=== PATIENT | male | born 1975 | race Caucasian/White ===

== ENCOUNTER 2016-08-13 09:10 | Emergency (ER) | payer OTHER ==
[2016-08-13 09:27] VITALS: BP 124/61
--- NOTE | 2016-08-13 09:34 | UC ---
Respiratory Complaint HPI - HPI Summary HPI Summary: The patient comes in today for: 1. Sinus pressure, cough in AM: Onset: 2-3 weeks for the sinus pressure; cough present for 6 weeks. Palliative/provocative: Nothing makes his symptoms better or worse. Quality: Pressure. Region: Sinuses and "ear pressure." Severity: 06/13 Time: Constant. Associated symptoms: Fevers: None. Chest pain: None. Dyspnea: None. * - History of Current Complaint Chief Complaint: UCRespiratory Stated Complaint: SINUS Time Seen by Provider: 08/13/16 09:26 Hx Obtained From: Patient - Allergies/Home Medications Allergies/Adverse Reactions: Allergies Allergy/AdvReac Type Severity Reaction Status Date / Time No Known Allergies Allergy Verified 08/13/16 09:17 PMH/Surg Hx/FS Hx/Imm Hx Previously Healthy: No - Herniated disc, mid-lower back. Endocrine History Of: Denies: Diabetes, Thyroid Disease, Hyperthyroidism, Hypothyroidism, Dyslipidemia Cardiovascular History Of: Reports: Hypertension Denies: Cardiac Disorders, Pacemaker/ICD, Myocardial Infarction, Congestive Heart Failure, Atrial Fibrillation, Deep Vein Thrombosis, Bleeding Disorders Respiratory History Of: Reports: Asthma - He used an inhaler in the past when "really sick" but not on a regular basi Denies: COPD, Bronchitis, Pneumonia, Pulmonary Embolism GI/ History Of: Denies: Gastroesophageal Reflux, Ulcer, Gastrointestinal Bleed, Gall Bladder Disease, Kidney Stones, Diverticulitis, Renal Disease, Urosepsis Neurological History Of: Denies: TIA, CVA, Dementia, Seizures, Migraine Psychological History Of: Denies: Anxiety, Depression, Bipolar Disorder, Schizophrenia, Post Traumatic Stress Disorder Cancer History Of: Denies: Lung Cancer, Colorectal Cancer, Breast Cancer, Prostate Cancer, Cervical Cancer Other History Of: Negative For: HIV, Hepatitis B, Hepatitis C, Anticoagulant Therapy - Surgical History Surgical History: Yes Surgery Procedure, Year, and Place: left hand surgery - Family History Known Family History: Positive: Hypertension - mother and father, Diabetes - father - Social History Occupation: Employed Full-time Alcohol Use: Occasionally Alcohol Amount: once a week Substance Use Type: None Smoking Status (MU): Never Smoked Tobacco - Immunization History Most Recent Influenza Vaccination: no Review of Systems Constitutional: Negative Skin: Negative Eyes: Negative ENT: Nasal Discharge Respiratory: Cough Cardiovascular: Negative Gastrointestinal: Negative All Other Systems Reviewed And Are Negative: Yes Physical Exam Triage Information Reviewed: Yes Appearance: Well-Appearing, No Pain Distress, Well-Nourished Vital Signs: Initial Vital Signs Temp 98.2 F 08/13/16 09:18 Pulse 94 08/13/16 09:18 Resp 20 08/13/16 09:18 BP 124/61 08/13/16 09:18 Pulse Ox 98 08/13/16 09:18 Vital Signs Reviewed: Yes Eyes: Positive: Conjunctiva Clear. Negative: Discharge ENT: Positive: Hearing grossly normal. Negative: Pharyngeal erythema, Nasal congestion, Nasal drainage, TM bulging, TM dull, TM red, Tonsillar swelling, Tonsillar exudate Dental: Negative: Gross Decay/Caries @, Dental Fracture @ Neck: Positive: Supple, Nontender, No Lymphadenopathy. Negative: Nuchal Rigidity Respiratory: Positive: Chest non-tender, Lungs clear, No respiratory distress, No accessory muscle use. Negative: Crackles, Wheezing Cardiovascular: Positive: RRR, No Murmur Abdomen Description: Positive: Nontender, No Organomegaly, Soft. Negative: Distended, Guarding Musculoskeletal: Positive: Strength Intact, ROM Intact, No Edema Neurological: Positive: Alert, Muscle Tone Normal Psychological: Positive: Age Appropriate Behavior, Consolable Skin: Negative: rashes, breakdown UC Diagnostic Evaluation - Laboratory O2 Sat by Pulse Oximetry: 98 Respiratory Course/Dx - Differential Dx/Diagnosis Differential Diagnosis/HQI/PQRI: Bronchitis, Laryngitis, Sinusitis Provider Diagnoses: Bacterial sinusitis Discharge - Discharge Plan Condition: Stable Disposition: HOME Forms: *Work Release Referrals: Enrico Palomo MD [Primary Care Provider] -
== END 2016-08-13 09:58 | disposition home or self-care (01) ==
LOC: UCCORT 09:10
DX: J32.9 Chronic sinusitis, unspecified (principal)
CPT/HCPCS: 99212; G0463

== ENCOUNTER 2016-10-20 14:29 | Emergency (ER) | payer OTHER ==
[2016-10-20 17:08] VITALS: BP 124/83
--- NOTE | 2016-10-20 17:32 | UC ---
Throat Pain/Nasal [place] HPI - HPI Summary HPI Summary: nasal congestion, cough, bilat ears plugged, left worse than right, no fever x 3 days. Had night sweats last pm. Does not have allergies. OTC counter meds don't work, and has HTN so can't take many of them. States he doesn't get better until he gets an antibiotic. - History of Current Complaint Chief Complaint: UCRespiratory Stated Complaint: SINUS,EAR PAIN Time Seen by Provider: 10/20/16 17:23 Hx Obtained From: Patient Onset/Duration: Gradual Onset, Lasting Days - 3, Still Present Severity: Moderate Pain Intensity: 0 Pain Scale Used: 0-10 Numeric Cough: Sputum Appears - yellow Associated Signs & Symptoms: Positive: Hoarseness, Sinus Discomfort, Nasal Discharge, Other - sweats. Negative: Wheezing, Fever - Allergies/Home Medications Allergies/Adverse Reactions: Allergies Allergy/AdvReac Type Severity Reaction Status Date / Time No Known Allergies Allergy Verified 10/20/16 16:12 PMH/Surg Hx/FS Hx/Imm Hx Endocrine History Of: Denies: Diabetes, Thyroid Disease, Hyperthyroidism, Hypothyroidism, Dyslipidemia Cardiovascular History Of: Reports: Hypertension Denies: Cardiac Disorders, Pacemaker/ICD, Myocardial Infarction, Congestive Heart Failure, Atrial Fibrillation, Deep Vein Thrombosis, Bleeding Disorders Respiratory History Of: Reports: Asthma - He used an inhaler in the past when "really sick" but not on a regular basi Denies: COPD, Bronchitis, Pneumonia, Pulmonary Embolism GI/ History Of: Denies: Gastroesophageal Reflux, Ulcer, Gastrointestinal Bleed, Gall Bladder Disease, Kidney Stones, Diverticulitis, Renal Disease, Urosepsis Neurological History Of: Denies: TIA, CVA, Dementia, Seizures, Migraine Psychological History Of: Denies: Anxiety, Depression, Bipolar Disorder, Schizophrenia, Post Traumatic Stress Disorder Cancer History Of: Denies: Lung Cancer, Colorectal Cancer, Breast Cancer, Prostate Cancer, Cervical Cancer Other History Of: Negative For: HIV, Hepatitis B, Hepatitis C, Anticoagulant Therapy - Surgical History Surgical History: Yes Surgery Procedure, Year, and Place: left hand surgery - Family History Known Family History: Positive: Hypertension - mother and father, Diabetes - father - Social History Occupation: Employed Full-time - [employer] Lives: Alone Alcohol Use: Occasionally Alcohol Amount: once a week Substance Use Type: None Smoking Status (MU): Never Smoked Tobacco - Immunization History Most Recent Influenza Vaccination: no Review of Systems Constitutional: Other - sweats Skin: Negative Eyes: Negative ENT: Sore Throat, Ear Ache, Nasal Discharge Respiratory: Cough Cardiovascular: Negative Gastrointestinal: Negative Genitourinary: Negative Motor: Negative Neurovascular: Negative Musculoskeletal: Negative Neurological: Negative Psychological: Negative All Other Systems Reviewed And Are Negative: Yes Physical Exam Triage Information Reviewed: Yes Appearance: No Pain Distress, Well-Nourished, Ill-Appearing Vital Signs: Initial Vital Signs Temp 99.8 F 10/20/16 16:07 Pulse 99 10/20/16 16:07 Resp 18 10/20/16 16:07 BP 129/53 10/20/16 16:07 Pulse Ox 96 10/20/16 16:07 Vital Signs Reviewed: Yes Eyes: Positive: Conjunctiva Clear ENT: Positive: Hearing grossly normal, Pharyngeal erythema, Nasal congestion, TMs normal Neck: Positive: Supple, Nontender, No Lymphadenopathy Respiratory: Positive: Lungs clear, Normal breath sounds, No respiratory distress Cardiovascular: Positive: RRR, No Murmur, Pulses Normal, Brisk Capillary Refill Musculoskeletal: Positive: Strength Intact, ROM Intact Neurological: Positive: Alert, Muscle Tone Normal Psychological Exam: Normal Skin Exam: Normal Throat Pain/Nasal Course/Dx - Differential Dx/Diagnosis Differential Diagnosis/HQI/PQRI: Otitis Media, Pharyngitis, Sinusitis, URI Provider Diagnoses: sinusitis. BP in poor control Discharge - Discharge Plan Condition: Stable Disposition: HOME Prescriptions: Azithromycin TAB* [Zithromax TAB (Z-AKBAR) 250 mg #6 tabs] 2 tab PO .TODAY, THEN 1 DAILY #1 akbar guaiFENesin/CODIEN 100MG-10MG* [Robitussin AC 100Mg-10Mg*] 5 ml PO Q4H PRN #100 ml MDD 20ml PRN Reason: Cough Patient Education Materials: Sinusitis (ED) Referrals: Enrico Palomo MD [Primary Care Provider] - 5 Days
== END 2016-10-20 17:47 | disposition swing bed (61) ==
LOC: UCCORT 14:29
DX: J32.9 Chronic sinusitis, unspecified (principal); I10 Essential (primary) hypertension; J45.909 Unspecified asthma, uncomplicated
CPT/HCPCS: 99212; G0463

== ENCOUNTER 2017-03-18 10:11 | Emergency (ER) | payer OTHER ==
[2017-03-18 12:02] VITALS: BP 121/55
--- NOTE | 2017-03-18 12:09 | UC ---
Respiratory Complaint HPI - HPI Summary HPI Summary: Pt presents c/o cough, nasal congestion, sinus pressure X 3 weeks. Woodrow fever or chills. - History of Current Complaint Chief Complaint: UCRespiratory Stated Complaint: COUGH Time Seen by Provider: 03/18/17 11:53 Hx Obtained From: Patient Onset/Duration: Gradual Onset, Lasting Weeks - 3, Still Present, Worse Since - onset Timing: Intermittent Episodes Severity Initially: Mild Severity Currently: Moderate Character: Cough: Productive - yellow Aggravating Factors: Exertion, Deep Breaths, Recumbent Position Associated Signs And Symptoms: Positive: URI, Nasal Congestion, Sinus Discomfort - Risk Factors Pulmonary Embolism Risk Factors: Negative Cardiac Risk Factors: Negative Pseudomonas Risk Factors: Negative Tuberculosis Risk Factors: Negative - Allergies/Home Medications Allergies/Adverse Reactions: Allergies Allergy/AdvReac Type Severity Reaction Status Date / Time No Known Allergies Allergy Verified 03/18/17 11:51 Home Medications: Home Medications Pravastatin Sodium [Pravachol] 40 mg PO BEDTIME 03/18/17 [History Confirmed ] PMH/Surg Hx/FS Hx/Imm Hx Previously Healthy: Yes Other History Of: Negative For: HIV, Hepatitis B, Hepatitis C, Anticoagulant Therapy - Surgical History Surgical History: Yes Surgery Procedure, Year, and Place: left hand surgery - Family History Known Family History: Positive: Hypertension - mother and father, Diabetes - father - Social History Occupation: Employed Full-time Lives: With Family Alcohol Use: Occasionally Alcohol Amount: once a week Substance Use Type: None Smoking Status (MU): Never Smoked Tobacco Have You Smoked in the Last Year: No - Immunization History Most Recent Influenza Vaccination: no Review of Systems Constitutional: Negative Skin: Negative Eyes: Negative ENT: Sinus Congestion, Other - nasal congestion Respiratory: Cough Cardiovascular: Negative Gastrointestinal: Negative Genitourinary: Negative Motor: Negative Neurovascular: Negative Musculoskeletal: Negative Neurological: Negative Psychological: Negative Is Patient Immunocompromised?: No All Other Systems Reviewed And Are Negative: Yes Physical Exam Triage Information Reviewed: Yes Appearance: Well-Appearing Vital Signs: Initial Vital Signs Temp 97.2 F 03/18/17 11:48 Pulse 98 03/18/17 11:48 Resp 14 03/18/17 11:48 BP 121/55 03/18/17 11:48 Pulse Ox 98 03/18/17 11:48 Vital Signs Reviewed: Yes Eye Exam: Normal ENT Exam: Other ENT: Positive: Nasal congestion, TM bulging Dental Exam: Normal Neck exam: Normal Respiratory Exam: Normal Cardiovascular Exam: Normal Musculoskeletal Exam: Normal Neurological Exam: Normal Psychological Exam: Normal Skin Exam: Normal UC Diagnostic Evaluation - Laboratory O2 Sat by Pulse Oximetry: 98 Respiratory Course/Dx - Differential Dx/Diagnosis Differential Diagnosis/HQI/PQRI: Bronchitis, Other - URI Provider Diagnoses: allergies. cough. bronchitis Discharge - Discharge Plan Condition: Stable Disposition: HOME Prescriptions: Amoxicillin PO (*) [Amoxicillin 500 MG CAP*] 500 mg PO Q12H #14 cap Benzonatate CAP* [Tessalon 100 MG CAP*] 100 mg PO Q8H PRN #30 cap PRN Reason: Cough Fexofenadine-Pseudoephedrine [Malu-D 24 Hour Allergy] 1 tab PO DAILY #10 tab predniSONE TAB* [Deltasone TAB*] 30 mg PO DAILY #12 tab Patient Education Materials: Acute Cough (ED) Forms: *Work Release Referrals: Enrico Palomo MD [Primary Care Provider] - If Needed
== END 2017-03-18 12:17 | disposition home or self-care (01) ==
LOC: UCCORT 10:11
DX: J40 Bronchitis, not specified as acute or chronic (principal)
CPT/HCPCS: 99212; G0463

== ENCOUNTER 2018-12-29 11:51 | Emergency (ER) | payer OTHER ==
[2018-12-29 12:39] VITALS: BP 143/93
--- NOTE | 2018-12-29 12:55 | UC ---
Back Pain HPI - HPI Summary HPI Summary: Pt has 4 herniated discs, which he has been managing with Naproxen intermittently when he has "flare up pain", which he says works well. Starting yesterday pain returned, pt has been doing some strenuous activity and believes that has exacerbated this issue - History of Current Complaint Chief Complaint: UCBackPain Stated Complaint: BACK PAIN Time Seen by Provider: 12/29/18 12:36 Hx Obtained From: Patient Onset/Duration: Sudden Onset, Lasting Days - 2 Timing: Constant Severity Initially: Moderate Severity Currently: Moderate Pain Intensity: 6 Character: Aching, Spasmodic Aggravating Factor(s): Movement Alleviating Factor(s): Nothing - Allergies/Home Medications Allergies/Adverse Reactions: Allergies Allergy/AdvReac Type Severity Reaction Status Date / Time No Known Allergies Allergy Verified 12/29/18 12:39 PMH/Surg Hx/FS Hx/Imm Hx Previously Healthy: Yes Other History Of: Negative For: HIV, Hepatitis B, Hepatitis C, Anticoagulant Therapy - Surgical History Surgical History: Yes Surgery Procedure, Year, and Place: left hand surgery - Family History Known Family History: Positive: Hypertension - mother and father, Diabetes - father - Social History Alcohol Use: Weekly Alcohol Amount: once a week Substance Use Type: None Smoking Status (MU): Never Smoked Tobacco Have You Smoked in the Last Year: No - Immunization History Most Recent Influenza Vaccination: no Review of Systems All Other Systems Reviewed And Are Negative: Yes Musculoskeletal: Positive: Arthralgia, Myalgia Is Patient Immunocompromised?: No Physical Exam Triage Information Reviewed: Yes Appearance: Well-Appearing, Well-Nourished, Pain Distress Vital Signs: Initial Vital Signs Temp 98.9 F 12/29/18 12:33 Pulse 95 12/29/18 12:33 Resp 16 12/29/18 12:33 BP 143/93 12/29/18 12:33 Pulse Ox 100 12/29/18 12:33 Vital Signs Reviewed: Yes Eye Exam: Normal ENT Exam: Normal Dental Exam: Normal Neck exam: Normal Respiratory Exam: Normal Cardiovascular Exam: Normal Abdominal Exam: Normal Bowel Sounds: Positive: Present Musculoskeletal: Positive: Strength Intact, ROM Intact, No Edema Neurological Exam: Normal Psychological Exam: Normal Skin Exam: Normal Back Pain Course/Dx - Course Course Of Treatment: hx obtained, exam performed ,meds reviewed, treated for chronic back pain - Differential Dx/Diagnosis Differential Diagnosis/HQI/PQRI: Herniated Disc, Strain, Sprain Provider Diagnosis: Herniated intervertebral disc of lumbar spine, Back strain Discharge - Sign-Out/Discharge Documenting (check all that apply): Patient Departure All imaging exams completed and their final reports reviewed: No Studies - Discharge Plan Condition: Stable Disposition: HOME Prescriptions: Cyclobenzaprine TAB* [Flexeril 10 MG TAB*] 10 mg PO TID PRN #6 tab PRN Reason: Spasms Naproxen [Naproxen 500 mg tab] 500 mg PO BID #60 tablet. Patient Education Materials: Chronic Back Pain (DC) Forms: *Work Release Referrals: Sury Anderson PA [Primary Care Provider] - Additional Instructions: 1. take the medication as prescribed. 2. Rest, stretch and heat as needed. 3. Follow up if not improving - Billing Disposition and Condition Condition: STABLE Disposition: Home
== END 2018-12-29 13:00 | disposition home or self-care (01) ==
LOC: UCCORT 11:51
DX: M51.26 Other intervertebral disc displacement, lumbar region (principal); S39.012A Strain of muscle, fascia and tendon of lower back, initial encounter; X50.0XXA Overexertion from strenuous movement or load, initial encounter; Y92.9 Unspecified place or not applicable
CPT/HCPCS: 99212; G0463

== ENCOUNTER 2019-09-25 12:24 | Emergency (ER) | payer OTHER ==
--- OUTSIDE RECORDS SUMMARY | 2019-09-25 12:47 | XMS REPORT | Continuity of Care Document ---
:1975 External Reference #:[id number] Author Name Sury Anderson PA Address [phone] [place] [address] Care Team Providers Name Role Phone Sury Anderson PA - Medical Care Team Information [employer]or Maintenance Mechanic [phone] Problems Active Problems Provider Date Essential hypertension Sury Anderson PA Onset: 03/28/2018 Hyperlipidemia Sury Anderson PA Onset: 03/28/2018 Esophagitis Sury Anderson PA Onset: 10/31/2018 Nonalcoholic steatohepatitis Onset: Social History Type Date Description Comments Sex Unknown Tobacco Use Start: Unknown Never Smoked Cigarettes Smoking Status Reviewed: 07/29/19 Never Smoked Cigarettes ETOH Use Currently consumes alcohol socially Tobacco Use Start: Unknown Patient has never smoked Recreational Drug Use Denies Drug Use Exercise Type/Frequency Exercises regularly Cardio for 60 minutes 3+ days a week weights 30-45 minutes 3+ days a week Allergies, Adverse Reactions, Alerts Description No Known Drug Allergies Medications Active Medications SIG Qnty Indications Ordering Provider Date Valacyclovir HCL 1 tabs by mouth 14tabs Ailyn Stacy, 07/29/2019 1gm twice a day for Tablets three days. Protonix 1 by mouth every Unknown 10/31/[address] day Lisinopril-Hydrochloro 1 by mouth every 90tabs Ailyn Stacy, 06/24/2018 thiazide day 20-25mg Tablets Simvastatin Take One Tablet 90tabs Vero Felix M.D. 40mg Tablets By Mouth Every Day (Replaces Atorvastatin) Immunizations Description No Information Available Vital Signs Date Vital Result Comment 07/29/2019 8:22am BP Systolic 124 mmHg BP Diastolic 84 mmHg Body Temperature 97.3 F Heart Rate 92 /min Respiratory Rate 18 /min Height 70 inches 5'10" Weight 261.00 lb BMI (Body Mass Index) 37.4 kg/m2 BSA (Body Surface Area) 2.34 m2 [place] body weight in kilograms 75 kg O2 % dC Oximetry 93 % 05/05/2019 11:10am BP Systolic Sitting Left Arm 137 mmHg BP Diastolic Sitting Left Arm 89 mmHg Heart Rate 105 /min Results Test Acquired Date Facility Test Result H/L Range Note CBC 06/17/2019 [facility] White Blood Count 5.8 K/uL Normal 3.4-10.5 [address] [place] [address] [phone] Red Blood Count 4.82 M/uL Normal 4.20-5.80 Hemoglobin 14.6 gm/dL Normal 12.8-17.0 Hematocrit 43.6 % Normal 38.0-48.0 Mean Cell Volume 90.5 fl Normal 80.0-96.0 Mean Corpuscular HGB 30.3 pg Normal 27.0-33.0 Mean Corpuscular HGB Conc 33.5 g/dL Normal 31.7-36.0 Platelet Count 274 K/uL Normal 155-360 Red Cell Distri Width SD 40.0 fl Normal 36-51 Red Cell Distri Width %CV 12.2 % Normal 11.6-15.8 Mean Platelet Volume 9.9 fl Normal 6.6-10.6 NRBC % 0.0 /100WBC < 10/ 100 WBC Liver Function 06/17/2019 [facility] Total Protein 7.5 g/dL Normal 6.4-8.2 Tests [address] [place] [address] [phone] Albumin 4.1 g/dL Normal 3.4-5.0 Globulin 3.4 g/dL Normal 1.9-4.3 Alb/Glob 1.2 ratio Bilirubin,Total 0.4 mg/dL Normal 0.2-1.0 Bilirubin,Direct 0.1 mg/dL Normal 0.0-0.2 Bilirubin,Indirect 0.3 mg/dL Normal 0.0-0.9 Sgot/Ast 19 U/L Normal 15-37 SGPT/Alt 53 U/L Normal 12-78 Alkaline Phosphatase 68 U/L Normal 45-117 Smear For WBC'S 03/31/2019 [facility] Smear For WBC'S NONE SEEN 2 [address] [place] [address] [phone] Smear Source: STOOL Specimen Source: STOOL Laboratory test 03/31/2019 [facility] C. Difficile NEGATIVE Negative 3 finding [address] [place] [address] [phone] Ova And Parasite 03/31/2019 [facility] Cryptosporidium NEGATIVE Negative Screen, PCR [address] , [place] [address] [phone] Giardia PCR NEGATIVE Negative 4 Comprehensive 03/31/2019 [facility] Glucose 94 mg/dL Normal 74-106 Metabolic Panel [address] [place] [address] [phone] BUN 16 mg/dL Normal 7-18 Creatinine 1.1 mg/dL Normal 0.6-1.3 Glom Filtration Rate, Estimate >60 mL/min >60 If >60 mL/min >60 5 BUN/Creat 14.5 ratio Sodium 140 mmol/L Normal 136-145 Potassium 3.7 mmol/L Normal 3.5-5.1 Chloride 111 mmol/L High 98-107 Carbon Dioxide 23 mmol/L Normal 21-32 Anion Gap 6 mEq/L Low 8-16 Calcium 8.0 mg/dL Low 8.5-10.1 Total Protein 6.8 g/dL Normal 6.4-8.2 Albumin 3.5 g/dL Normal 3.4-5.0 Globulin 3.3 g/dL Normal 1.9-4.3 Alb/Glob 1.1 ratio Bilirubin,Total 0.3 mg/dL Normal 0.2-1.0 Sgot/Ast 30 U/L Normal 15-37 SGPT/Alt 71 U/L Normal 12-78 Alkaline Phosphatase 69 U/L Normal 45-117 Laboratory test 03/31/2019 [facility] Lipase 123 U/L Normal 56-289 6 finding [address] [place] [address] [phone] CBC W/Automated 03/31/2019 [facility] White Blood 7.8 K/uL Normal 3.4-10.5 Diff [address] [facility] [place] [address] [phone] Red Blood Count 4.65 M/uL Normal 4.20-5.80 Hemoglobin 14.9 gm/dL Normal 12.8-17.0 Hematocrit 42.9 % Normal 38.0-48.0 Mean Cell Volume 92.3 fl Normal 80.0-96.0 Mean Corpuscular HGB 32.0 pg Normal 27.0-33.0 Mean Corpuscular HGB Conc 34.7 g/dL Normal 31.7-36.0 Platelet Count 308 K/uL Normal 155-360 Red Cell Distri Width SD 42.3 fl Normal 36-51 Red Cell Distri Width %CV 13.4 % Normal 11.6-15.8 Mean Platelet Volume 10.1 fl Normal 6.6-10.6 Neut% 56.3 % Normal 33.0-73.0 Lymph % 31.5 % Normal 20.0-42.0 [place] % 9.1 % Normal 0.0-10.0 Eo% 2.3 % Normal 0.0-6.6 Bas% 0.5 % Normal 0.0-1.1 Immature Grans 0.3 % Normal 0.0-5.0 NRBC % 0.0 /100WBC < 10/ 100 WBC Neut# 4.37 K/uL Normal 1.8-7.0 Lymph # 2.45 K/uL Normal 1.0-4.0 [place] # 0.71 K/uL Normal 0.0-0.8 Eos # 0.18 K/uL Normal 0.0-0.5 Baso # 0.04 K/uL Normal 0.0-0.1 Immature Grans Absolute 0.02 K/uL NRBC # 0.00 K/uL Ua RFX Micro & Culture 03/31/2019 [facility] Urine Color YELLOW Yellow II [address] [place] [address] [phone] Urine Clarity CLEAR Clear Urine Glucose - Dipstick NEGATIVE mg/dL Negative Urine Bilirubin - Dipstick NEGATIVE Negative Urine Ketone NEGATIVE mg/dL Negative Urine Specific [place] >= 1.030 Normal 1.010-1.030 Urine Blood TRACE 0-2 Urine PH 5.5 Low 6.5-7.5 Urine Protein - Dipstick TRACE mg/dL Negative Urine Urobilinogen - Dipstick 0.2 E.U./dL Normal 0.2-1.0 Urine Nitrite - Dipstick NEGATIVE Negative Urine Leuk Esterase NEGATIVE Negative Source: URINE, CLEAN CAT <SEE NOTE> 7 Lactic Acid 03/31/2019 [facility] Lactic Acid 0.6 mmol/L Normal 0.4-1.9 [address] [place] [address] [phone] Lab Reflex >2.0 for Sepsis? Y 1 HOFFMAN, LFT 2 ABD PAIN,DIARRHEA 3 A positive C. diff result does not necessarily indicate the presence of viable organisms. It does however indicate the presence of the tcdB gene and allows for presumptive detection of a Clostridium difficile toxigenic organism. As with all PCR-based in vitro diagnostic tests, extremely low levels of DNA below the limit of detection of the assay may produce a false negative result. METHOD: PCR 4 NOTE: A positive result does not necessarily indicate the presence of viable organisms. It does however, indicate the presence of DNA from G. lamblia, C. parvum, C. hominis. This assay is intended to detect DNA from C. hominis and C. parvum without distinguishing between these two species. This test is not intended to detect DNA from other species of Cryptosporidium. As with all PCR-based in vitro diagnostic tests, levels of DNA present may be below the analytical sensitivity of the assay and therefore cause a false negative result. Method: PCR 5 Note: Persistent reduction for 3 months or more in an eGFR <60 mL/min/1.73 m2 defines CKD. Patients with eGFR values >/=60 mL/min/1.73 m2 may also have CKD if evidence of persistent proteinuria is present. The original MDRD equation for estimated GFR is not valid for patients less than 18 years of age. Additional information may be found at www.kdoqi.org. 6 Original specimen hemolyzed. Called [facility] [place] [facility] at 0528 on 03/31/19 for specimen recollection. 7 URINE, CLEAN CATCH Procedures Date Code Description Status 07/10/2019 78420270 Colonoscopy Completed 05/05/2019 23756 Radiology, Foot, Complete-3 Views Completed 02/12/2019 57680 Radiology, Foot, Complete-3 Views Completed Medical Devices Description No Information Available Encounters Type Date Location Provider Dx Diagnosis Office Visit 05/05/2019 Orthopaedic Office Lana Castro, M25.572 Pain in left 11:15a ankle and joints of left foot M72.2 Plantar fascial fibromatosis Office Visit 03/05/2019 3:15p Orthopaedic Yvette Castro72.2 Plantar fascial Office MD Lana fibromatosis M84.375A Stress fracture, left foot, initial encounter for fracture Assessments Date Code Description Provider 07/29/2019 Z00.01 Encounter for general adult medical Sury Anderson PA examination with abnormal findings 07/29/2019 I10 Essential (primary) hypertension Sury Anderson PA 07/29/2019 M72.2 Plantar fascial fibromatosis Sury Anderson PA 07/29/2019 E78.5 Hyperlipidemia, unspecified Sury Anderson PA 07/29/2019 R63.5 Abnormal weight gain Sury Anderson PA 07/29/2019 K21.0 Gastro-esophageal reflux disease with Sury Anderson PA esophagitis 05/05/2019 M25.572 Pain in left ankle and joints of left foot Lana Castro MD 05/05/2019 M72.2 Plantar fascial fibromatosis Lana Castro MD 03/05/2019 M72.2 Plantar fascial fibromatosis Lana Castro MD 03/05/2019 M84.375A Stress fracture, left foot, initial encounter Lana Castro MD for fracture 02/12/2019 M25.572 Pain in left ankle and joints of left foot Lana Castro MD 02/12/2019 M84.375A Stress fracture, left foot, initial encounter Lana Castro MD for fracture Plan of Treatment Future Appointment(s):01/27/2020 9:50 am - Sury Anderson PA at [facility] RD07/29/2019 - Sury Anderson PAZ00.01 Encounter for general adult medical examination with abnormal findingsComments:Discussed healthy habits. Plenty of water, fresh fruits and vegetables and whole grains in the diet.Limit sugary foods and drinks. Limit fried foods, fast foods and processed foods. Try to exercise asad regular basis. 30-45 minutes 4-5 days a week is a reasonable goal.I10 Essential (primary) hypertensionComments:BP is at goal < 130/90. Cont current treatment of medication, low salt diet and regular exercise.Follow up:6 months.M72.2 Plantar fascial fibromatosisComments: Improvement w injection. So its time to get back into working out. Limit high impact activities. Andwear supportive, comfortable footwear.E78.5 Hyperlipidemia , unspecifiedComments:On a statin . continue with healthy diet. Avoid sugars and fats.R63.5 Abnormal weight gainComments:Discussed healthy habits. Plenty of water, fresh fruits and vegetables and whole grains in the diet.Limit sugary foods and drinks. Limit fried foods, fast foods and processed foods. Try to exercise asad regular basis. 30-45 minutes 4-5 days a week is a reasonable goal. Try to get 7-8 hours of sleep each night. Use My FitnessPal to monitor calorie intake and expenditure.K21.0 Gastro-esophageal reflux disease with esophagitisComments:Limit spicy and acidic foods. Patient reports relief w Protonix. Cont/ Weight loss may also help toreduce symptoms and need for medication.AllNew Medication:Valacyclovir HCL 1 gm - 1 tabs by mouth twice a day for three days. Goals 07/29/2019 - Sury Anderson, PAK21.0 Gastro-esophageal reflux disease with esophagitisAvoid spicy and acidic foods. Functional Status Functional Condition Comment Date Status Independent with all ADL's Active Mental Status Description No Information Available Referrals Refer to Reason for Referral Status Appt Date Scott Brice M.D. LT calcaneus bone bruise Patient will Closed 2018 bring his xray and MRI CD with him to the appointment. 05/06/19 - left message for patient of appt date/time. [address] [place] [address] [phone]
[2019-09-25 13:04] VITALS: BP 129/98
--- NOTE | 2019-09-25 13:11 | UC ---
Back Pain HPI - HPI Summary HPI Summary: 44-year-old male who works at the [employer] who has a muscle strain to his mid to lower back as a result of chopping wood over the past week. He denies any saddle anesthesia and no numbness or tingling in his extremities. - History of Current Complaint Chief Complaint: UCBackPain Stated Complaint: BACK PAIN Time Seen by Provider: 09/25/19 13:07 Hx Obtained From: Patient Onset/Duration: Gradual Onset, Lasting Days Timing: Constant Severity Initially: Mild Severity Currently: Moderate Pain Intensity: 8 Character: Dull, Aching Aggravating Factor(s): Movement, Lifting, Bending Alleviating Factor(s): Rest Associated Signs And Symptoms: Positive: Negative. Negative: Weakness, Numbness , Tingling, Abdominal Pain, Bladder Incontinence, Bowel Incontinence, Pain with Weight Bearing - Allergies/Home Medications Allergies/Adverse Reactions: Allergies Allergy/AdvReac Type Severity Reaction Status Date / Time No Known Allergies Allergy Verified 09/25/19 13:00 Home Medications: Home Medications Pravastatin Sodium [Pravachol] 40 mg PO DAILY 03/18/17 [History Confirmed ] Naproxen [Naproxen 500 mg tab] 500 mg PO BID #60 tablet. 12/29/18 [Rx Confirmed 09/25/19] Cyclobenzaprine TAB* [Flexeril 10 MG TAB*] 10 mg PO TID PRN #15 tab 09/25/19 [Rx ] Lisinopril TAB* [Prinivil TAB*] 40 mg PO DAILY 09/25/19 [History Confirmed 09/24] PMH/Surg Hx/FS Hx/Imm Hx Previously Healthy: Yes Cardiovascular History: Hypertension Respiratory History: Asthma Other History Of: Negative For: HIV, Hepatitis B, Hepatitis C, Anticoagulant Therapy - Surgical History Surgical History: Yes Surgery Procedure, Year, and Place: left hand surgery - Family History Known Family History: Positive: Hypertension - mother and father, Diabetes - father - Social History Occupation: Employed Full-time Lives: With Family Alcohol Use: Weekly Alcohol Amount: once a week Substance Use Type: None Smoking Status (MU): Never Smoked Tobacco Have You Smoked in the Last Year: No - Immunization History Most Recent Influenza Vaccination: no Review of Systems All Other Systems Reviewed And Are Negative: Yes Musculoskeletal: Positive: Other: - Mild mid/lower back pain worse with movement. Neurological/Mental Status: Positive: Other - Patient denies any saddle anesthesia. No difficulty with urination or bowel movements.. Negative: Headache, Weakness, Paresthesia, Numbness Is Patient Immunocompromised?: No Physical Exam Triage Information Reviewed: Yes Appearance: Well-Appearing, No Pain Distress, Well-Nourished Vital Signs: Initial Vital Signs Temp 97.6 F 09/25/19 12:55 Pulse 91 09/25/19 12:55 Resp 16 09/25/19 12:55 BP 129/98 09/25/19 12:55 Pulse Ox 98 09/25/19 12:55 Vital Signs Reviewed: Yes Respiratory: Positive: Lungs clear, Normal breath sounds, No respiratory distress, No accessory muscle use Cardiovascular: Positive: RRR, No Murmur, Pulses Normal, Brisk Capillary Refill Abdomen Description: Positive: Nontender, Soft. Negative: CVA Tenderness (R), CVA Tenderness (L) Musculoskeletal: Positive: Strength Intact, ROM Intact, Other: - Good peripheral pulses, neuro sensation, capillary refill, negative straight leg raise. Neurological Exam: Normal Neurological: Positive: Other: - Reflexes +2 at the knees bilaterally. Psychological Exam: Normal Skin Exam: Normal Back Pain Course/Dx - Course Course Of Treatment: Patient is comfortable here. He refused a Toradol injection. He has Aleve at home which he states helps with the pain. He was given a prescription for Flexeril and advised no drinking alcohol, driving or operating machinery while taking that. He requested a note for work to be off over the next 2 days and then he has the weekend off which will give him 4 days without work. - Differential Dx/Diagnosis Provider Diagnosis: Strain of mid-back Discharge ED - Sign-Out/Discharge Documenting (check all that apply): Patient Departure All imaging exams completed and their final reports reviewed: No Studies - Discharge Plan Condition: Good Disposition: HOME Prescriptions: Cyclobenzaprine TAB* [Flexeril 10 MG TAB*] 10 mg PO TID PRN #15 tab PRN Reason: Pain - Mild Patient Education Materials: Muscle Strain (DC) Forms: *Work Release Referrals: Sury Anderson PA [Primary Care Provider] - Additional Instructions: Avoid movements that cause pain, apply heat or ice to the sore area which ever feels good. Take Aleve 2 tablets twice a day for pain. Follow-up with your primary care provider if any worsening symptoms or if no improvement in 3 or 4 days. - Billing Disposition and Condition Condition: GOOD Disposition: Home
== END 2019-09-25 13:24 | disposition home or self-care (01) ==
LOC: UCCORT 12:24
DX: S29.012A Strain of muscle and tendon of back wall of thorax, initial encounter (principal); X50.3XXA Overexertion from repetitive movements, initial encounter; Y93.89 Activity, other specified; Y92.9 Unspecified place or not applicable; I10 Essential (primary) hypertension; Z79.899 Other long term (current) drug therapy
CPT/HCPCS: 99212; G0463